=== PATIENT | female | born 1995 | race Two or more races ===

== ENCOUNTER 2022-02-14 18:32 | Outpatient (CLI) | payer SELFPAY ==
--- NOTE | 2022-02-15 13:36 | XRAY Report ---
PROCEDURE: Lumbar Spine 2 View INDICATIONS: LUMBAR RADICULOPATHY TECHNIQUE: 2 views of the lumbar spine were acquired. COMPARISON: None. FINDINGS: Five nonrib-bearing lumbar-type vertebral bodies of normal height and alignment. No suspicious lytic or blastic osseous lesion. No significant degenerative changes. Disc spaces are maintained. The facet hypertrophy. IMPRESSION: Normal study. Reviewed by: Mick Rios MD on 02/15/2022 12:34 PM [facility] Approved by: Mick Rios MD on 02/15/2022 12:34 PM [facility] Station ID: [id number]
== END 2022-02-14 23:59 | disposition home or self-care (01) ==
LOC: DI.S 18:32
PROVIDERS: ATTEND Registered Nurse
DX: M54.16 Radiculopathy, lumbar region (principal)